=== PATIENT | female | born 1990 | race Caucasian/White ===

== ENCOUNTER 2017-06-11 19:14 | Emergency (ER) | payer BC ==
[~2017-06-11] VITALS: Ht 160 cm; Wt 82.1 kg
[2017-06-11 19:15] VITALS: BP_SYST 131
[2017-06-11] MEDS ORDERED: LORATADINE 10 MG TABLET PO ONE (20:30)
[2017-06-11] MEDS ORDERED: FAMOTIDINE 20 MG TABLET PO ONE (20:30)
[2017-06-11] MEDS ORDERED: DEXAMETHASONE SOD PHOSPHATE 10 MG/ML VIAL IM ONE (20:30)
[2017-06-11 21:33] VITALS: BP_SYST 131
== END 2017-06-11 21:33 | disposition home or self-care (01) ==
LOC: SED 19:14
DX: S40.862A Insect bite (nonvenomous) of left upper arm, initial encounter (principal); S40.861A Insect bite (nonvenomous) of right upper arm, initial encounter; L53.9 Erythematous condition, unspecified; W57.XXXA Bitten or stung by nonvenomous insect and other nonvenomous arthropods, initial encounter; Y93.89 Activity, other specified; Y92.89 Other specified places as the place of occurrence of the external cause; Y99.8 Other external cause status
CPT/HCPCS: 96372; 99283; J1100

== ENCOUNTER 2020-05-04 15:39 | Emergency (ER) | payer BC ==
[~2020-05-04] VITALS: Ht 160 cm; Wt 102.5 kg
[2020-05-04 15:47] VITALS: BP_SYST 136
[2020-05-04] MEDS ORDERED: methylPREDNISolone SOD SUCC/PF 62.5 MG/ML VIAL IVP ONE (16:00)
[2020-05-04] MEDS ORDERED: DIPHENHYDRAMINE INJ 50 MG/ML VIAL IVP ONE (16:00)
[2020-05-04] MEDS ORDERED: EPINEPHrine 1 MG/ML AMP SUBCUT ONE (16:00)
[2020-05-04 17:16] VITALS: BP_SYST 130
== END 2020-05-04 17:16 | disposition home or self-care (01) ==
LOC: SED 15:39
DX: T78.2XXA Anaphylactic shock, unspecified, initial encounter (principal); R21 Rash and other nonspecific skin eruption; I10 Essential (primary) hypertension; E11.9 Type 2 diabetes mellitus without complications
CPT/HCPCS: 96372; 96374; 96375; 99291; J0171; J1200; J2930